=== PATIENT | male | born 1960 | race Caucasian/White ===

== ENCOUNTER 2019-05-04 22:46 | Inpatient (IN) | payer MEDICAID ==
[~2019-05-04] VITALS: Ht 182.9 cm; Wt 79.0 kg
[2019-05-05] VITALS (7 sets, daily range): BP systolic 104–164; BP diastolic 49–90; PULSE 81–117; TEMP 97.7–99.3
[2019-05-05] MEDS ORDERED: LANTUS100 U/ML SQ (01:46)
[2019-05-05] MEDS ORDERED: NOVOLOG 100U100 U/M1 SQ (01:47)
[2019-05-05] MEDS ORDERED: ALPHAGAN OPHTH D5 ML OD (01:48)
[2019-05-05] MEDS ORDERED: NORCO 325 MG-51 TAB PO (01:50)
[2019-05-05] MEDS ORDERED: LOPRESSOR 225 MG/TAB PO (01:51)
[2019-05-05] MEDS ORDERED: MYRBETR25MG PO (01:51)
[2019-05-05] MEDS ORDERED: FOLIC ACID 11 MG/TA1 PO (01:52)
[2019-05-05] MEDS ORDERED: LIPITOR20 MG PO (01:52)
[2019-05-05] MEDS ORDERED: NORVASC 5MG5 MG/TAB PO (01:53)
--- NOTE | 2019-05-05 02:05 | NUR ---
Pt. arrived to the floor via stretcher. Pt. able to stand and ambulate to the bed with standby assist. Pericare provided at this time as the pt. had been incontinent of urine. Pt.'s wet clothes placed in a yellow bag and pt. label applied. Pt. is A&OX3, assessment complete. INT to lt. ac patent. Pt. reports pain at a 10 on pain scale at this time. Will notify of pt. arrival.
--- NOTE | 2019-05-05 08:00 | NUR ---
Patient in bed resting. Alert and oriented x 3. Assessment complete. Left lower foot appears reddened with edema, gauze dressing in place. Patient states pain comes and goes, will call when he feels like he needs something for pain. Fluids infusing per orders. Denies further needs at this time.
[2019-05-05] MEDS ORDERED: TYLENOL 325MG325 MG PO (10:01)
[2019-05-05 11:40] LABS: BASO # 0.1 (0.0-0.2); BASO % 0.6 % (0.0-2.0); EOS # 0.2 (0.0-0.7); EOS % 2.2 % (0-4.0); GRAN # 5.3 (1.4-6.5); GRAN % 68.9 % (42.2-75.2); LYMPH # 1.6 (1.2-3.4); LYMPH % 20.3 % (20.0-51.0); MEAN CELL VOLUME 87 fl (80.0-100.0); MEAN CORPUSCULAR HGB CONC 33 g/dl (33.0-37.0); MEAN PLATELET VOLUME 11.2 fl (7.4-10.4); MONO # 0.6 (0.1-0.6); MONO % 7.6 % (1.7-9.3); PLATELET COUNT 172 K/mm3 (130-400); RED BLOOD COUNT 3.24 M/mm3 (4.20-5.60); REDCELL DISTRIBUTION WIDTH-CV 13.2 % (11.5-14.5)
[2019-05-05 11:45] LABS: HEMATOCRIT 28.2 % (42.0-52.0); HEMOGLOBIN 9.3 g/dl (13.5-18.0); MEAN CORPUSCULAR HEMOGLOBIN 29 pg (27.0-31.0)
[2019-05-05 11:51] LABS: ALBUMIN 3.1 gm/dL (3.5-5.0); BILIRUBIN,TOTAL 0.8 mg/dL (0.0-1.0); CALCIUM 8.4 mg/dL (8.4-10.2); CREATININE, serum 0.77 (0.66-1.25); POTASSIUM 4.8 mmol/L (3.4-5.0); TOTAL PROTEIN 7.5 gm/dL (6.4-8.2)
--- NOTE | 2019-05-05 11:58 | NUR ---
SW met with the patient to discuss discharge plan. The patient lives in [place] with his son, Guerita. The patient could not recall his phone number. He states that his daughter, Darlene Rainey (ph#[phone]), also lives in [place]. He reports independence with ADLs and has canes, walkers, and a wheelchair. He states that he also has a private duty caregiver though his insurance, Maria C Fong (ph#[phone]). He states that she takes him shopping and to doctor appointments. The patient does not have a PCP at this time, but states that he was recently set up at the [facility] in [place]. He could not recall with what provider or the appointment time. ROSA M contacted the [facility] (ph#[phone]). The center receptionist reports that the patient's appointment is on 08/[address] Dunlap. She states that they can get him in sooner for a hospital follow up and to call back when ready to discharge to set up appointment. The patient receives his medications at [facility] and he reports no difficulties obtaining his meds. The patient does not have advanced directives completed, but he was interested in obtaining a form for DPOA-HC. ROSA M provided. The patient plans to return home with his son upon discharge. He states that he had his private duty caregiver drive him to [place], due to not liking the [facility]. ROSA M attempted to contact the patient's daughter and caregiver. SW left them voicemails and will continue to follow.
[2019-05-05 12:03] LABS: C-REACTIVE PROTEIN 15.9 mg/dL (0.0-0.9)
[2019-05-05 12:07] LABS: ERYTHROCYTE SEDIMENTATION RATE < 140 mm/hr (0-30)
--- NOTE | 2019-05-05 13:29 | NUR ---
Vancomycin Initial Dosing Pharmacy Note Ordering provider: Cr Andrew MD Indication/duration: BONE/JOINT Relevant comorbidities: LABS: SCR 1.0/CRCL~97/74KG Recommendation: VANCO 1.5GM Q12H Loading dose: 1.5 grams Maintenance dose: 1.5 grams every 12 hours Trough goal: 15-20 ug/mL
--- NOTE | 2019-05-05 16:15 | NUR ---
ROSA M received a call back from the patient's daughter, Elke. She states that she knew the patient's private duty caregiver was bringing him to a hospital, but was unsure where. She is now aware of his hospitalization here. She confirms that she also lives in [place] and that the patient lives in [place] with her brother, Guerita. She did not have Guerita's phone number.
--- NOTE | 2019-05-05 19:12 | NUR ---
Patient has done well throughout the day. Pain medications given per orders. Denies further needs at this time. Reported off to lap machine operator. Patient incontinent of urine, briefs changed throughout the day.
--- NOTE | 2019-05-05 20:30 | NUR ---
Pt. laying in bed at this time. Pt. is A&OX3, assessment complete. IV to lt. ac patent, IV fluids infusing per orders. Pt. is very grumpy at this time and it takes a lot of coxing to get pt. to take evening meds. Dressing to lt. foot CDI. Pt. denies pain or needs at this time. Call light within reach.
[2019-05-06 03:43] VITALS: BP 126/70; PULSE 79; TEMP 98
[2019-05-06 07:32] VITALS: BP 161/80; PULSE 82; TEMP 97.8
[2019-05-06 07:46] LABS: BASO # 0.1 (0.0-0.2); EOS # 0.2 (0.0-0.7); EOS % 3.7 % (0-4.0); GRAN # 4.4 (1.4-6.5); GRAN % 71.5 % (42.2-75.2); HEMOGLOBIN 10.5 g/dl (13.5-18.0); LYMPH % 16.2 % (20.0-51.0); MEAN CELL VOLUME 86 fl (80.0-100.0); MEAN CORPUSCULAR HEMOGLOBIN 28 pg (27.0-31.0); MEAN CORPUSCULAR HGB CONC 33 g/dl (33.0-37.0); MEAN PLATELET VOLUME 10.9 fl (7.4-10.4); MONO # 0.5 (0.1-0.6); MONO % 7.4 % (1.7-9.3); PLATELET COUNT 199 K/mm3 (130-400); RED BLOOD COUNT 3.72 M/mm3 (4.20-5.60)
[2019-05-06 07:55] LABS: ALANINE AMINOTRANSFERASE < 6 U/L (21-72); ALBUMIN 3.2 gm/dL (3.5-5.0); ALKALINE PHOSPHATASE 90 U/L (50-136); ANION GAP 7 mmol/L (7-16); AST,SGOT 21 U/L (15-37); BILIRUBIN,TOTAL 0.4 mg/dL (0.0-1.0); BLOOD UREA NITROGEN 18 mg/dL (9-20); CALCIUM 8.9 mg/dL (8.4-10.2); CARBON DIOXIDE 26 mmol/L (22-30); CHLORIDE 107 mmol/L (98-107); CREATININE, serum 0.74 (0.66-1.25); GLUCOSE 69 mg/dL (74-106); POTASSIUM 3.8 mmol/L (3.4-5.0); SODIUM 140 mmol/L (137-145); TOTAL PROTEIN 7.6 gm/dL (6.4-8.2)
[2019-05-06 12:20] VITALS: BP 139/76; PULSE 80; TEMP 97.8
--- NOTE | 2019-05-06 13:00 | NUR ---
Patient has been non-compliant at times. Sometimes he refuses to answer questions. Discussed him having surgery tomorrow and he stated he will do whatever to make sure he does not have to come back. Discussed the wounds on his fingers and toes, he stated they just showed up. No other changes at this time. Call light within reach. Patient is incontinent of urine. Explained we needed a urine sample but he refused to attempt giving us one.
[2019-05-06 16:04] VITALS: BP 141/78; PULSE 69; TEMP 97.4
[2019-05-06 20:00] VITALS: BP 145/86; PULSE 80; TEMP 98.2
--- NOTE | 2019-05-06 20:00 | NUR ---
Report received. 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 Assessment complete. A&Ox3. Plan of care discussed for this shift to include NPO after midnight/pain meds/HS meds. PICC line to right upper arm infusing NS@75mls/hr-no redness/swelling noted. Discussed the need for UA-states he is incontinent of urine and doesnt know when he goes until after he does. States he can not urinate now-will check again later to attempt to obtain UA. Denies nausea/shortness of breath/pain. Denies questions/concerns. Did state he is okay to have amputation completed but would like to speak to a doctor this morning. Call light in reach. Will monitor.
[2019-05-06] MEDS ORDERED: COSOPT 2%-0.5%10 ML OD (21:18)
[2019-05-06 23:51] VITALS: BP 138/81; PULSE 79; TEMP 98.2
[2019-05-07] VITALS (14 sets, daily range): BP systolic 107–142; BP diastolic 60–76; PULSE 64–75; TEMP 97.9–99
--- NOTE | 2019-05-07 06:15 | NUR ---
This nurse to room to attempt to get consent signed. Will not sign consent. Refusing to answer questions. States "im tired."
[2019-05-07 06:27] LABS: BASO % 0.8 % (0.0-2.0); EOS # 0.2 (0.0-0.7); EOS % 3.9 % (0-4.0); GRAN # 3.2 (1.4-6.5); GRAN % 63.7 % (42.2-75.2); LYMPH # 1.3 (1.2-3.4); LYMPH % 25.1 % (20.0-51.0); MEAN CELL VOLUME 87 fl (80.0-100.0); MEAN CORPUSCULAR HGB CONC 32 g/dl (33.0-37.0); MEAN PLATELET VOLUME 11.2 fl (7.4-10.4); MONO # 0.3 (0.1-0.6); MONO % 6.1 % (1.7-9.3); PLATELET COUNT 191 K/mm3 (130-400); RED BLOOD COUNT 3.38 M/mm3 (4.20-5.60); REDCELL DISTRIBUTION WIDTH-CV 13.1 % (11.5-14.5)
[2019-05-07 06:31] LABS: CALCIUM 9.1 mg/dL (8.4-10.2); CREATININE, serum 0.73 (0.66-1.25)
[2019-05-07 06:40] LABS: HEMATOCRIT 29.3 % (42.0-52.0); HEMOGLOBIN 9.5 g/dl (13.5-18.0); MEAN CORPUSCULAR HEMOGLOBIN 28 pg (27.0-31.0)
--- NOTE | 2019-05-07 08:33 | NUR ---
SW received a phone call back from the patient's personal driver, Maria C Fong. Maria C reports that she provides services for the patient everyday and that she is employed from [employer]. She states that she can provide transportation back home for the patient when ready to discharge.
--- NOTE | 2019-05-07 13:27 | NUR ---
patient states "i don't feel like dancing on my feet yet" mild discomfort to left lower extremity, arousable when called upon, taking little sips of water when needed.
--- NOTE | 2019-05-07 13:59 | NUR ---
Patient was very sleepy this morning when nurse arrived on shift. Responded to question but never kept conversation going. Patient was incontinet x2. Left for surgery at 1000 and came back at 1200. vitals Q15 minutes were within normal limits.
--- NOTE | 2019-05-07 18:30 | NUR ---
Patient has been doing well since returning from surgery. He has some increased pain to LLE. Denies nausea. Boscobel given once for pain. He continues to incontinent of urine. Last changed at 1700. Patient stated he wasn't sure if he got discharged if he would have a ride. Patient thought he would be discharged this evening. Explained he is not leaving today. He is worried about where he will be going after discharged and if he will have a ride or someone to help him. Dressing to LLE remains C/D/I. Dressing to right great toe is also intact, no drainage. Encouraged paient to try using the urinal so he is not wet all the time but he refused. No other changes at this time. Call light within reach. Bed alarm on.
--- NOTE | 2019-05-07 20:00 | NUR ---
Report received. Assumed care for appointment scheduler. Assessment complete. VS stable. A&Ox3-drowsy. Denies pain. Not answering many questions-just grunts. Dressing to right lower extremity-ruth/bandage-CDI. CMS WNL. Left great toe with gauze dressing CDI. Incontinent of urine-bed linens changed. Plan of care discussed for this shift. Call light in reach/bed in low position/wheels locked. Will monitor.
--- NOTE | 2019-05-08 04:00 | NUR ---
Rested well this shift. Has been incontinent of urine all this shift. Refused to use urinal for urine specimen. Denies nausea/shortness of breath. Dressing to right great toe remains CDI. Left lower extremity elevated on pillow. Spint/ruth remains CDI. Denies needs. Will monitor.
[2019-05-08 04:03] VITALS: BP 133/69; PULSE 73; TEMP 97.9
[2019-05-08 07:32] LABS: CALCIUM 8.5 mg/dL (8.4-10.2); CREATININE, serum 0.95 (0.66-1.25); POTASSIUM 4.3 mmol/L (3.4-5.0)
[2019-05-08 07:33] LABS: BASO % 0.2 % (0.0-2.0); GRAN # 7.9 (1.4-6.5); GRAN % 82.5 % (42.2-75.2); LYMPH # 1.1 (1.2-3.4); LYMPH % 11.6 % (20.0-51.0); MEAN CELL VOLUME 87 fl (80.0-100.0); MEAN CORPUSCULAR HEMOGLOBIN 28 pg (27.0-31.0); MEAN CORPUSCULAR HGB CONC 33 g/dl (33.0-37.0); MEAN PLATELET VOLUME 11.6 fl (7.4-10.4); MONO # 0.5 (0.1-0.6); MONO % 5.3 % (1.7-9.3); PLATELET COUNT 220 K/mm3 (130-400); RED BLOOD COUNT 3.53 M/mm3 (4.20-5.60)
[2019-05-08 07:35] LABS: HEMATOCRIT 30.7 % (42.0-52.0)
[2019-05-08 07:38] VITALS: BP 125/71; PULSE 74; TEMP 97.8
--- NOTE | 2019-05-08 10:10 | NUR ---
PICC intact right upper arm. With sterile technique right upper arm PICC dressing change done with insertion site cleansed with ChloraPrep 1, chlorhexidine impregnated disc applied, skin prep, StatLock, and Tegaderm applied. Small amount of drainage was noted on chlorhexidine disc now has no further drainage after dressing change done. No signs or symptoms of IV complications noted. No concerns voiced. Wrapped with Gato to protect catheter.
[2019-05-08] MEDS ORDERED: LOPRESSOR 225 MG/TAB PO (12:15)
[2019-05-08] MEDS ORDERED: NORCO 325 MG-51 TAB PO (12:18)
[2019-05-08 12:31] VITALS: BP 125/71; PULSE 78; TEMP 98.1
--- NOTE | 2019-05-08 12:56 | NUR ---
PT TO DISCHARGE HOME. FOLLOW UP WITH UROLOGY IN [place]. HOWELL CATHETER TO BE PLACED PRIOR TO DISCHARGE. AGREE WITH STUDENTS ASSESSMENTS THIS SHIFT.
--- NOTE | 2019-05-08 13:45 | NUR ---
Reported on to Alejandro CARDONA. Pt resting in bed, reported unable to rate pain in left foot due to it feeling numb. Pt did not have IS in room, and refused to do it till after he got a catheter placed. Inserted marcus catheter and patient tolerated it well. Pt resting in bed watching TV and playing on his phone. Reported off to Alejandro CARDONA.
--- NOTE | 2019-05-08 13:52 | NUR ---
KVNG WITH AIVS TO REMOVE PICC LINE AT THIS TIME.
--- NOTE | 2019-05-08 15:31 | NUR ---
The patient is to discharge back home with his son today, 05/08. ROSA M met with the patient to review discharge plan and to discuss home health services for [facility]. The patient reports that he is not interested and does not feel that he has a need for home health at this time. ROSA M then discussed PT's recommendation of outpatient PT. The patient reports that the would be agreeable to outpatient PT. ROSA M provided the patient with a list of the different outpatient therapy centers in [place]. The patient chose [facility]. ROSA M contacted Ty at [facility] and secured the patient an outpatient PT appointment on Saturday, 05/13, at 1500. ROSA M notified the patient's RN and PAAdamsC of the appointment and faxed the patient's disharge orders to [facility]. ROSA M contacted the patient's personal service representative, Maria C. Maria C reports that she is able to provide transport back home for the patient and that she can be here this evening. ROSA M updated the patient's RN. Maria C's cell phone number is [phone]. Medicaid Transport phone number for him is [phone]. No additional needs at this time. ROSA M also made an APS report due to concerns. APS intake ID#[id number]
[2019-05-08 17:22] VITALS: BP 142/67; PULSE 63
--- NOTE | 2019-05-08 18:46 | NUR ---
REPORT TO KATHY CARDONA.
--- NOTE | 2019-05-08 20:00 | NUR ---
Report received. Assumed care for date night sitter. Assessment complete. A&Ox3-drowsy. Denies shortness of breath/pain/nausea. Dressing to left lower extremity C/D/I-gauze/ruth. Dressing to right great toe C/D/I-gauze. Resting in bed with no s/s of distress. States "I thought I was going home today but I guess not, now." States he hasnt heard from family/friends about a ride home. Will notify house father. Denies needs. Call light in reach. Will monitor.
--- NOTE | 2019-05-08 20:38 | NUR ---
Called Maria C, Manager Project at this time to inquire about patient's departure time. Maria C stated that she did not drive at night and had to call her son to drive. She stated that she and her son are en route to scrap picker patient.
--- NOTE | 2019-05-08 21:45 | NUR ---
Discharge instructions given both verbal and handwritten. Discussed f/u appointments, home meds and s/s of infection. Denies questions/concerns. Escorted by staff via wheelchair to POV in stable condition
== END 2019-05-08 21:45 | disposition home or self-care (01) | DRG 617 ==
LOC: SURG 22:46
PROVIDERS: Nurse Practitioner Family; Physician Assistant; Student in an Organized Health Care Education/Training Program; ADMIT Hospitalist
PROC: 02HV33Z Insertion of Infusion Device into Superior Vena Cava, Percutaneous Approach (ICD-10-PCS; principal; 2019-05-06)
PROC: 0Y6N0ZB Detachment at Left Foot, Partial 2nd Ray, Open Approach (ICD-10-PCS; 2019-05-07)
PROC: 0Y6N0ZC Detachment at Left Foot, Partial 3rd Ray, Open Approach (ICD-10-PCS; 2019-05-07)
DX: E11.621 Type 2 diabetes mellitus with foot ulcer (principal); M86.172 Other acute osteomyelitis, left ankle and foot; Z79.4 Long term (current) use of insulin; H54.413A Blindness right eye category 3, normal vision left eye; E11.65 Type 2 diabetes mellitus with hyperglycemia; E11.40 Type 2 diabetes mellitus with diabetic neuropathy, unspecified; K21.9 Gastro-esophageal reflux disease without esophagitis; E78.5 Hyperlipidemia, unspecified; I10 Essential (primary) hypertension; R33.9 Retention of urine, unspecified; R47.9 Unspecified speech disturbances; L97.519 Non-pressure chronic ulcer of other part of right foot with unspecified severity; R32 Unspecified urinary incontinence; Z90.49 Acquired absence of other specified parts of digestive tract; Z89.421 Acquired absence of other right toe(s); Z87.891 Personal history of nicotine dependence
CPT/HCPCS: 99222-AI; 99233-AI; 99239; C1751; J0696; J1100; J1170; J1815; J2250; J2270; J2405; J2543; J2704; J3010; J3370; J7030; J7050